=== PATIENT | male | born 1980 | race Caucasian/White ===

== ENCOUNTER 2018-08-26 12:06 | Emergency (ER) | payer SELFPAY ==
[~2018-08-26] VITALS: Ht 162.6 cm; Wt 84.4 kg
--- OUTSIDE RECORDS SUMMARY | 2018-08-26 12:15 | XMS REPORT ---
Author Author [facility] Address Unknown Phone Unavailable Care Team Providers Care Glass Bender Name Role Phone Unavailable Unavailable Payers Payer Name Policy Type Policy Number Effective Date Expiration Date Problems This patient has no known problems. Allergies, Adverse Reactions, Alerts Allergy Name Allergy Type Status Severity Reaction(s) Onset Date Inactive Date Treating Clinician Comments Penicillins DA Active [place] 2018-07-19 00:00:00 No Known Allergies DA Active U 2016-09-15 00:00:00 Medications This patient has no known medications. Encounters Start Date/Time End Date/Time Encounter Type Admission Type Attending Clinicians Care Facility Care Department Encounter ID 2017-12-25 09:35:34 Inpatient [facility] [id number] 2017-12-25 00:00:00 Inpatient [facility] [id number] 2017-12-25 00:00:00 Inpatient [facility] [id number] 2017-12-24 10:52:46 Inpatient [facility] [id number] 2017-12-24 00:00:00 Inpatient [facility] [id number] 2017-12-24 00:00:00 Inpatient [facility] [id number] 2017-12-21 07:52:39 Inpatient [facility] [id number] 2018-09-23 00:00:00 2018-09-23 00:00:00 Outpatient [facility] [id number] 2018-08-20 00:00:00 2018-08-20 00:00:00 Outpatient [facility] [id number] 2018-08-19 00:00:00 2018-08-19 00:00:00 Outpatient [facility] [id number] 2018-08-11 07:28:20 2018-08-11 07:28:20 Emergency [facility] [id number] 2018-08-11 06:38:42 2018-08-11 06:38:42 Emergency [facility] [id number] 2018-07-30 14:18:54 2018-07-30 14:18:54 Outpatient [facility] [id number] 2018-07-30 13:23:29 2018-07-30 13:23:29 Outpatient [facility] [id number] 2018-07-22 11:52:04 2018-07-22 11:52:04 Outpatient [facility] [id number] 2018-07-22 11:09:03 2018-07-22 11:09:03 Outpatient [facility] [id number] 2018-06-19 00:00:00 2018-06-19 00:00:00 Outpatient [facility] [id number] 2018-06-18 00:00:00 2018-06-18 00:00:00 Outpatient [facility] [id number] 2018-05-21 00:00:00 2018-05-21 00:00:00 Outpatient [facility] [id number] 2018-05-09 00:00:00 2018-05-09 00:00:00 Outpatient [facility] [id number] 2018-05-02 00:00:00 2018-05-02 00:00:00 Outpatient [facility] [id number] 2018-05-01 00:00:00 2018-05-01 00:00:00 Outpatient [facility] [id number] 2018-05-01 00:00:00 2018-05-01 00:00:00 Outpatient [facility] [id number] 2018-04-29 00:00:00 2018-04-29 00:00:00 Outpatient [facility] [id number] 2018-04-23 00:00:00 2018-04-23 00:00:00 Outpatient [facility] [id number] 2018-04-17 00:00:00 2018-04-17 00:00:00 Outpatient [facility] [id number] 2018-04-16 00:00:00 2018-04-16 00:00:00 Outpatient [facility] [id number] 2018-04-15 00:00:00 2018-04-15 00:00:00 Outpatient [facility] [id number] 2018-04-02 00:00:00 2018-04-02 00:00:00 Outpatient [facility] [id number] 2018-04-01 00:00:00 2018-04-01 00:00:00 Outpatient [facility] [id number] 2018-04-01 00:00:00 2018-04-01 00:00:00 Outpatient [facility] [id number] 2018-03-28 09:20:19 2018-03-28 09:20:19 Outpatient [facility] [id number] 2018-03-28 08:42:04 2018-03-28 08:42:04 Outpatient [facility] [id number] 2018-03-28 00:00:00 2018-03-28 00:00:00 Outpatient [facility] [id number] 2018-03-27 00:00:00 2018-03-27 00:00:00 Outpatient [facility] [id number] 2018-03-27 00:00:00 2018-03-27 00:00:00 Outpatient [facility] [id number] 2018-03-24 22:16:28 2018-03-24 22:16:28 Emergency [facility] [id number] 2018-03-15 00:00:00 2018-03-15 00:00:00 Outpatient [facility] [id number] 2018-03-14 00:00:00 2018-03-14 00:00:00 Outpatient [facility] [id number] 2018-03-08 00:00:00 2018-03-08 00:00:00 Outpatient [facility] [id number] 2018-03-07 00:00:00 2018-03-07 00:00:00 Outpatient [facility] [id number] 2018-03-06 00:00:00 2018-03-06 00:00:00 Outpatient [facility] [id number] 2018-03-06 00:00:00 2018-03-06 00:00:00 Outpatient [facility] [id number] 2018-03-06 00:00:00 2018-03-06 00:00:00 Outpatient [facility] [id number] 2018-03-05 00:00:00 2018-03-05 00:00:00 Outpatient [facility] [id number] 2018-02-27 00:00:00 2018-02-27 00:00:00 Outpatient [facility] [id number] 2018-02-13 00:00:00 2018-02-13 00:00:00 Outpatient [facility] [id number] 2018-02-12 08:37:16 2018-02-12 08:37:16 Outpatient [facility] [id number] 2018-02-11 11:24:26 2018-02-11 11:24:26 Outpatient [facility] [id number] 2018-02-11 10:03:24 2018-02-11 10:03:24 Outpatient [facility] [id number] 2018-02-11 09:57:23 2018-02-11 09:57:23 Outpatient [facility] [id number] 2018-02-06 18:28:45 2018-02-06 18:28:45 Emergency [facility] [id number] 2018-02-06 13:53:33 2018-02-06 13:53:33 Outpatient [facility] [id number] 2018-02-06 13:11:56 2018-02-06 13:11:56 Outpatient [facility] [id number] 2018-01-24 00:00:00 2018-01-24 00:00:00 Outpatient [facility] [id number] 2018-01-21 00:00:00 2018-01-21 00:00:00 Outpatient [facility] [id number] 2018-01-21 00:00:00 2018-01-21 00:00:00 Outpatient [facility] [id number] 2018-01-03 00:00:00 2018-01-03 00:00:00 Outpatient [facility] [id number] 2018-01-03 00:00:00 2018-01-03 00:00:00 Outpatient [facility] [id number] 2018-01-01 00:00:00 2018-01-01 00:00:00 Outpatient [facility] [id number] 2017-12-21 05:54:19 2017-12-21 05:54:19 Emergency [facility] [id number] 2017-12-21 02:24:43 2017-12-21 02:24:43 Emergency [facility] [id number] 2017-12-21 00:47:45 2017-12-21 00:47:45 Inpatient [facility] [id number] Results Test Description Test Time Test Comments Text Results Atomic Results Result Comments CULTURE, URINE 2018-07-07 10:09:00 Report Text (test code=Report Text) [facility] 2018-07-06 1334 Report Text7 (test code=Report Text7) NO GROWTH WITHIN 24 HOURS Report Text8 (test code=Report Text8) PRELIMINARY REPORT Report Text9 (test code=Report Text9) Report Text10 (test code=Report Text10) [facility] 2018-07-07 1009 Report Text11 (test code=Report Text11) NO GROWTH WITHIN 48 HOURS Report Text12 (test code=Report Text12) FINAL REPORT CT ABDOMEN/PELVIS [id number] 08:11:[address] [id number] IMAGING REPORTPatient Name: BREA AGUILERA LDate of Service: [id number]: 37 Sex: M Order #: [id number] Room: [facility]: 1980 X-Ray Number: [id number] Record Number: [id number] Hospital Number: [id number] Physician: ROCK URENAOrdering Physician: CAITY DURON -CT ABDOMEN AND PELVIS WITHOUT CONTRAST 0752 hours July 05, 2018:CLINICAL HISTORY: Lateral flank pain for 2 daysTECHNIQUE: Examination is performed with 4 mm axial sections with coronaland sagittal reconstructions. This CT exam was performed using one or moreof the following dose reduction techniques: Automated exposure control,adjustment of the MA and or KV according to patient size or use ofiterative reconstruction technique.FINDINGS: The unopacified urinary tract is normal.Retrocecal appendix is normal.The unenhanced liver, spleen, pancreas and adrenals and gallbladder arealso unremarkable.There is focal density in the fundus of the stomach possib ly ingestedmedication.The gas pattern is unremarkable.Impression: Normal examina tionElectronically Signed By: Florentino Laughlin M.D., 07/05/2018 8:09 AMLegalindsay y authenticated by ROSLYN Krueger 2018-07-05 08:09:03WHOLE BLOOD GLUCOSE 2018-07-05 07:52:00* Test Item Value Reference Range Comments WHOLE BLOOD GLUCOSE (test code=POC GLU) 147 mg/dL 70-99 Fasting glucose normal <100 MG/DL- [employer] recommendation [id number] 07:08:00* Test Item Value Reference Range Comments GLUCOSE (test code=URGLU) NEGATIVE MG/DL NEG-100 BILIRUBN (test code=URBILI) NEGATIVE NEGATIVE KETONE (test code=URKET) NEGATIVE MG/DL NEGATIVE BLOOD (test code=URBLD) SMALL UR PH (test code=URPH) 5.5 5.0-7.5 PROTEIN (test code=URPRO) 100 MG/DL NEGATIVE NITRITES (test code=URNIT) NEGATIVE NEGATIVE UROBILINGEN (test code=URURO) 0.2 EU/DL 0.2-1.0 LEUKOCYT (test code=URLEU) NEGATIVE NEGATIVE UA COLOR (test code=UA COLOR) YELLOW YELLOW CLARITY (test code=CLARITY) CLEAR CLEAR SP GRAV (test code=URSPGRAV) 1.014 1.000-1.025 UAMICRO (test code=UAMICRO) YES WBC (test code=URWBC) 1 /HPF 0-5 RBC (test code=URRBC) 3 /HPF 0-2 CASTS (test code=CAST) 1 /LPF 0-3 UR EPI (test code=EPI) 10 /LPF BACTERIA (test code=BACTERIA) NEGATIVE NONE
--- OUTSIDE RECORDS SUMMARY | 2018-08-26 12:15 | XMS REPORT | Clinical Summary ---
Author Author [facility] Address Unknown Phone Unavailable Care Team Providers Care Impregnator Helper Name Role Phone Asked, No Pcp PCP Unavailable Allergies Comments Active Allergy Reactions Severity Noted Date Childhood allergy Penicillin 11/28/2017 Medications End Date Status Medication Sig Dispensed Refills Start Date Active FLUoxetine (PROzac) 10 MG Take 10 mg by 0 capsule mouth every morning. Active metoprolol tartrate Take 50 mg by 0 (LOPRESSOR) 50 mg tablet mouth 2 (two) times a day. Active insulin GLARGINE (LANTUS) Inject 35 0 100 unit/mL injection Units under (vial) the skin nightly. Active insulin lispro (HumaLOG) Inject under 0 100 unit/mL injection the skin 3 (three) times a day before meals. Active gabapentin (NEURONTIN) Take 300 mg 0 300 mg capsule by mouth 3 (three) times a day. Active glimepiride (AMARYL) 4 MG Take 4 mg by 0 tablet mouth daily before breakfast. Active lisinopril Take 2.5 mg 0 (PRINIVIL,ZESTRIL) 2.5 mg by mouth tablet daily. 01/29/2018 Discontinued glimepiride (AMARYL) 2 MG Take 2 mg by 0 tablet mouth daily before breakfast. 01/29/2018 Discontinued metoprolol tartrate Take 25 mg by 0 (LOPRESSOR) 25 mg tablet mouth 2 (two) times a day. 01/25/2018 Discontinued chlordiazePOXIDE Take 25 mg by 0 (LIBRIUM) 25 MG capsule mouth 3 8 (three) times a day as needed for anxiety or withdrawal. 01/29/2018 Discontinued thiamine 100 MG tablet Take 100 mg 0 by mouth every morning. 01/29/2018 Discontinued folic acid (FOLVITE) 1 MG Take 1 mg by 0 tablet mouth every morning. 03/01/2018 glimepiride (AMARYL) 4 MG Take 1 tablet 30 tablet 0 tablet (4 mg total) 8 by mouth daily before breakfast for 30 days. 02/28/2018 atorvastatin (LIPITOR) 40 Take 1 tablet 30 tablet 0 MG tablet (40 mg total) 8 by mouth nightly for 30 days. 02/28/2018 metoprolol tartrate Take 1 tablet 60 tablet 0 (LOPRESSOR) 50 mg tablet (50 mg total) 8 by mouth 2 (two) times a day for 30 days. 02/28/2018 folic acid (FOLVITE) 1 MG Take 1 tablet 30 tablet 0 tablet (1 mg total) 8 by mouth every morning for 30 days. 02/28/2018 insulin NPH (HumuLIN-N) Inject 14 10 mL 12 100 unit/mL injection Units under 8 the skin 2 (two) times a day for 30 days. 03/01/2018 pantoprazole (PROTONIX) Take 1 tablet 30 tablet 0 40 MG EC tablet (40 mg total) 8 by mouth daily for 30 days. 02/28/2018 thiamine 100 MG tablet Take 1 tablet 30 tablet 0 (100 mg 8 total) by mouth every morning for 30 days. 05/09/2018 pantoprazole (PROTONIX) Take 1 tablet 30 tablet 0 40 MG EC tablet (40 mg total) 8 by mouth daily for 30 days. 05/09/2018 sucralfate (CARAFATE) 1 Take 1 tablet 120 tablet 0 gram tablet (1 g total) 8 by mouth 4 (four) times a day for 30 days. 04/14/2018 ALPRAZolam (XANAX) 0.5 MG Take 1 tablet 10 tablet 0 tablet (0.5 mg 8 total) by mouth 2 (two) times a day as needed for anxiety for up to 5 days. 04/13/2018 chlordiazePOXIDE Take 1 12 capsule 0 (LIBRIUM) 5 MG capsule capsule (5 mg 8 total) by mouth 3 (three) times a day as needed for anxiety for up to 4 days. 05/09/2018 sucralfate (CARAFATE) 100 Take 10 mL (1 1200 mL 0 mg/mL suspension g total) by 8 mouth 4 (four) times a day before meals and nightly for 30 days. 05/10/2018 folic acid (FOLVITE) 1 MG Take 1 tablet 30 tablet 0 tablet (1 mg total) 8 by mouth daily for 30 days. 05/09/2018 pantoprazole (PROTONIX) Take 1 tablet 60 tablet 0 40 MG EC tablet (40 mg total) 8 by mouth 2 (two) times a day for 30 days. 05/09/2018 thiamine 100 MG tablet Take 1 tablet 30 tablet 0 (100 mg 8 total) by mouth daily for 30 days. Active Problems Problem Noted Date Gastritis 04/08/2018 Esophagitis 04/08/2018 Chronic pancreatitis due to acute alcohol intoxication 04/06/2018 Epigastric abdominal pain 04/06/2018 Overview: Added automatically from request for surgery [id number] Type 2 diabetes mellitus with complication 01/29/2018 Thrombocytopenia 01/29/2018 B12 deficiency 01/29/2018 Anxiety 01/29/2018 ETOH abuse 12/21/2017 Hypertension Resolved Problems Problem Noted Date Resolved Date Alcohol-induced acute pancreatitis without infection or necrosis 01/25/2018 01/29/2018 Encounters Care Team Description Date Type Specialty Louisa Ramirez MD ESOPHAGOGASTRODUODENOSCOPY (EGD) with biopsy 04/08/2018 [place] [facility] [place] 04/08/2018 Anesthesia Gastroenterology [facility], MD Chivo Garcia, MD Vira Nazario, Diana Davenport MD Epigastric abdominal pain (Primary Dx); Chronic pancreatitis due to acute alcohol intoxication; Intractable vomiting with nausea, unspecified vomiting type; Type 2 diabetes mellitus with complication, with long-term current use of insulin 04/06/2018 [facility] General Internal Medicine - Encounter 04/09/2018 Pamella Cohen, MODESTO 01/31/2018 Telephone Diabetes Services Lyndsey Dorantes MD Joglekar, Swati, MD Bavare, MD Cyrus Nazario David, DO Alcohol-induced acute pancreatitis without infection or necrosis (Primary Dx); Acute alcoholic intoxication with complication 01/25/2018 [facility] General Internal Medicine - Encounter 01/29/2018 New Vazquez Jr., MD Alcohol withdrawal syndrome without complication (Primary Dx) 11/28/2017 Emergency Emergency Medicine after 08/25/2017 Social History Date Tobacco Use Types Packs/Day Years Used Never Smoker Smokeless Tobacco: Never Used Alcohol Use Drinks/Week oz/Week Comments Yes 84 Cans of 50.4 beer Sex Assigned at Date Recorded Not on file Industry Job Start Date Occupation Not on file Not on file Not on file Travel End Travel History Travel Start No recent travel history available. Last Filed Vital Signs Time Taken Vital Sign Reading 04/09/2018 11:58 AM CDT Blood Pressure 156/95 04/09/2018 11:58 AM CDT Pulse 70 04/09/2018 7:38 AM CDT Temperature 36.2 C (97.2 F) 04/09/2018 11:58 AM CDT Respiratory Rate 18 04/09/2018 11:58 AM CDT Oxygen Saturation 97% - Inhaled Oxygen - Concentration 04/06/2018 10:45 AM CDT Weight 87.7 kg (193 lb 4 oz) 04/06/2018 10:45 AM CDT Height 165.1 cm (5' 5") 04/06/2018 10:45 AM CDT Body Mass Index 32.16 Plan of Treatment Health Maintenance Due Date Last Done Comments DIABETIC RETINAL EYE EXAM 1978 MMR VACCINES (1 of - 1979 Standard series) DIABETIC FOOT EXAM 1988 URINE MICROALBUMIN 1988 VARICELLA VACCINES (1 of 1991 2 - 2-dose adolescent series) HEPATITIS B VACCINES (1 1997 of 3 - Risk 3-dose series) INFLUENZA VACCINE 05/08/2018 IPV VACCINES Aged Out No longer eligible based on patient's age to complete this topic MENINGOCOCCAL VACCINE Aged Out No longer eligible based on patient's age to complete this topic Procedures Comments Procedure Name Priority Date/Time Associated Diagnosis POC GLUCOSE Routine 04/09/2018 11:56 AM CDT POC GLUCOSE Routine 04/09/2018 9:23 AM CDT POC GLUCOSE Routine 04/09/2018 9:00 AM CDT POC GLUCOSE Routine 04/09/2018 6:17 AM CDT POC GLUCOSE Routine 04/08/2018 8:28 PM CDT POC GLUCOSE Routine 04/08/2018 4:14 PM CDT SURGICAL PATHOLOGY Routine 04/08/2018 REQUEST 12:57 PM CDT POC GLUCOSE Routine 04/08/2018 12:24 PM CDT ESOPHAGOGASTRODUODENOSCOP 04/08/2018 Epigastric abdominal pain Y (EGD) 11:15 AM CDT POC GLUCOSE Routine 04/08/2018 6:41 AM CDT HEMOGLOBIN A1C Routine 04/08/2018 6:30 AM CDT POC GLUCOSE Routine 04/07/2018 8:14 PM CDT POC GLUCOSE Routine 04/07/2018 4:24 PM CDT POC GLUCOSE Routine 04/07/2018 11:01 AM CDT POC GLUCOSE Routine 04/07/2018 6:19 AM CDT ZZESTIMATED GFR Routine 04/07/2018 6:15 AM CDT HC COMPLETE BLD COUNT Routine 04/07/2018 W/AUTO DIFF 6:15 AM CDT HEMOGLOBIN A1C Routine 04/07/2018 6:15 AM CDT LIPID PANEL Routine 04/07/2018 6:15 AM CDT BASIC METABOLIC PANEL Routine 04/07/2018 6:15 AM CDT POC GLUCOSE Routine 04/06/2018 8:00 PM CDT POC GLUCOSE Routine 04/06/2018 4:20 PM CDT POC GLUCOSE Routine 04/06/2018 10:09 AM CDT POC GLUCOSE Routine 04/06/2018 9:45 AM CDT XR CHEST 2 VW STAT 04/06/2018 7:[address] ABDOMEN PELVIS W STAT 04/06/2018 CONTRAST 7:05 AM CDT ECG 12-LEAD STAT 04/06/2018 6:12 AM CDT ZZESTIMATED GFR STAT 04/06/2018 5:04 AM CDT ALCOHOL LEVEL, BLOOD STAT 04/06/2018 5:04 AM CDT LIPASE LEVEL STAT 04/06/2018 5:04 AM CDT COMPREHENSIVE METABOLIC STAT 04/06/2018 PANEL 5:04 AM CDT HC COMPLETE BLD COUNT STAT 04/06/2018 W/AUTO DIFF 5:04 AM CDT URINE DRUGS OF ABUSE Routine 04/06/2018 SCREEN 5:02 AM CDT URINALYSIS SCREEN AND STAT 04/06/2018 MICROSCOPY, WITH REFLEX 5:02 AM CDT TO CULTURE POC GLUCOSE Routine 01/29/2018 11:41 AM CDT POC GLUCOSE Routine 01/29/2018 6:22 AM CDT ZZESTIMATED GFR Routine 01/29/2018 5:56 AM CDT MAGNESIUM LEVEL Routine 01/29/2018 5:56 AM CDT HC COMPLETE BLD COUNT Routine 01/29/2018 W/AUTO DIFF 5:56 AM CDT BASIC METABOLIC PANEL Routine 01/29/2018 5:56 AM CDT POC GLUCOSE Routine 01/28/2018 8:56 PM CDT POC GLUCOSE Routine 01/28/2018 4:04 PM CDT POC GLUCOSE Routine 01/28/2018 12:00 PM CDT POC GLUCOSE Routine 01/28/2018 6:48 AM CDT LIPASE LEVEL Routine 01/28/2018 5:34 AM CDT POC GLUCOSE Routine 01/27/2018 9:23 PM CDT POC GLUCOSE Routine 01/27/2018 4:15 PM CDT POC GLUCOSE Routine 01/27/2018 11:22 AM CDT ZZESTIMATED GFR Routine 01/27/2018 7:04 AM CDT LIPASE LEVEL Routine 01/27/2018 7:04 AM CDT HC COMPLETE BLD COUNT Routine 01/27/2018 W/AUTO DIFF 7:04 AM CDT BASIC METABOLIC PANEL Routine 01/27/2018 7:04 AM CDT POC GLUCOSE Routine 01/27/2018 6:31 AM CDT POC GLUCOSE Routine 01/26/2018 8:45 PM CDT POC GLUCOSE Routine 01/26/2018 4:12 PM CDT POC GLUCOSE Routine 01/26/2018 11:14 AM CDT POC GLUCOSE Routine 01/26/2018 6:42 AM CDT ZZESTIMATED GFR Routine 01/26/2018 4:55 AM CDT LIPASE LEVEL Routine 01/26/2018 4:55 AM CDT LIPID PANEL Routine 01/26/2018 4:55 AM CDT HEMOGLOBIN A1C Routine 01/26/2018 4:55 AM CDT COMPREHENSIVE METABOLIC Routine 01/26/2018 PANEL 4:55 AM CDT HC COMPLETE BLD COUNT Routine 01/26/2018 W/AUTO DIFF 4:55 AM CDT POC GLUCOSE Routine 01/25/2018 9:01 PM CDT POC GLUCOSE Routine 01/25/2018 7:46 PM CDT POC GLUCOSE Routine 01/25/2018 3:40 PM CDT ECHOCARDIOGRAM 2D Routine 01/25/2018 COMPLETE W MMODE SPECTRAL 3:06 PM CDT COLOR DOPPLER ([id number]) CT CHEST WO CONTRAST STAT 01/25/2018 12:54 PM CDT POC GLUCOSE Routine 01/25/2018 12:[address] ABDOMEN PELVIS WO STAT 01/25/2018 CONTRAST 11:[address] HEAD WO CONTRAST STAT 01/25/2018 11:29 AM CDT URINE DRUGS OF ABUSE STAT 01/25/2018 SCREEN 6:22 AM CDT URINALYSIS SCREEN AND STAT 01/25/2018 MICROSCOPY, WITH REFLEX 6:22 AM CDT TO CULTURE XR CHEST 1 VW PORTABLE STAT 01/25/2018 5:15 AM CDT ECG 12-LEAD STAT 01/25/2018 4:52 AM CDT ZZESTIMATED GFR STAT 01/25/2018 4:48 AM CDT LIPASE LEVEL STAT 01/25/2018 4:48 AM CDT ALCOHOL LEVEL, BLOOD STAT 01/25/2018 4:48 AM CDT B NATRIURETIC PEPTIDE STAT 01/25/2018 4:48 AM CDT TROPONIN STAT 01/25/2018 4:48 AM CDT COMPREHENSIVE METABOLIC STAT 01/25/2018 PANEL 4:48 AM CDT PROTHROMBIN TIME WITH INR STAT 01/25/2018 4:48 AM CDT PARTIAL THROMBOPLASTIN STAT 01/25/2018 TIME (PTT) 4:48 AM CDT HC COMPLETE BLD COUNT STAT 01/25/2018 W/AUTO DIFF 4:48 AM CDT ECG ED PRELIMINARY Routine 01/25/2018 INTERPRETATION 4:46 AM CDT TROPONIN Timed 11/28/2017 2:[address] ABDOMEN PELVIS W STAT 11/28/2017 CONTRAST 1:00 PM [facility] ECG ED PRELIMINARY Routine 11/28/2017 INTERPRETATION 11:46 AM [facility] URINALYSIS SCREEN AND STAT 11/28/2017 MICROSCOPY, WITH REFLEX 11:05 AM [facility] TO CULTURE LACTIC ACID LEVEL STAT 11/28/2017 10:29 AM [facility] ALCOHOL LEVEL, BLOOD STAT 11/28/2017 10:29 AM [facility] PHOSPHORUS LEVEL STAT 11/28/2017 10:29 AM [facility] MAGNESIUM LEVEL STAT 11/28/2017 10:29 AM [facility] TROPONIN STAT 11/28/2017 10:29 AM [facility] ZZESTIMATED GFR STAT 11/28/2017 10:29 AM [facility] HC COMPLETE BLD COUNT STAT 11/28/2017 W/AUTO DIFF 10:29 AM [facility] LIPASE LEVEL STAT 11/28/2017 10:29 AM [facility] COMPREHENSIVE METABOLIC STAT 11/28/2017 PANEL 10:29 AM [facility] ECG 12-LEAD STAT 11/28/2017 10:24 AM [facility] after 08/25/2017 Results * POC glucose (04/09/2018 11:56 AM CDT) Only the most recent of 34 results within the time period is included. POC glucose 201 (H) 65 - 100 mg/dL [facility] DEPARTMENT OF Comment: PATHOLOGY AND Meter ID: [id number] GENOMIC MEDICINE Tennis Ball Coverer Hand: Mahsa Espinoza Performing Organization Address [facility]/Zipcode Phone Number [facility] [address] [place], [place] [id number] PATHOLOGY AND GENOMIC MEDICINE * Surgical pathology request (04/08/2018 12:57 PM CDT) [facility] DEPARTMENT OF PATHOLOGY AND GENOMIC MEDICINE Surgical pathology report See link below for PDF Lab [facility] DEPARTMENT OF Report PATHOLOGY AND GENOMIC MEDICINE Result status This is Final Report to [facility] DEPARTMENT OF [id number] PATHOLOGY AND GENOMIC MEDICINE Performing Organization Address City/[facility] Phone Number [place] [phone] PATHOLOGY AND GENOMIC MEDICINE * Hemoglobin A1c (04/08/2018 6:30 AM CDT) Only the most recent of 3 results within the time period is included. Hemoglobin A1C 7.9 (H) 4.0 - 6.0 % [facility] DEPARTMENT OF Comment: PATHOLOGY AND GENOMIC MEDICINE Less than 6% - Goal of therapy for Type II Diabetes Less than 7%-Goal of therapy for Type I Diabetes Less than 8%-Accepta ble control for Type I or Type II Diabetes Greater than 8%-Unacceptabl e control; action indicated. (ADA94) Specimen Blood Performing Organization Address [facility] Phone Number [place] [phone] PATHOLOGY AND GENOMIC MEDICINE * Estimated GFR (04/07/2018 6:15 AM CDT) Only the most recent of 7 results within the time period is included. GFR Non Af Amer >90 mL/min/1.73 m2 [facility] DEPARTMENT OF PATHOLOGY AND GENOMIC MEDICINE GFR Af Amer >90 mL/min/1.73 m2 [facility] DEPARTMENT OF Comment: PATHOLOGY AND Chronic kidney disease: <60 GENOMIC MEDICINE mL/min/1.73m2 Kidney failure: <15 mL/min/1.73m2 The estimated GFR is calculated from the IDMS-traceable Modification of Diet in Renal Disease Equation. The accuracy of the calculation is poor when the creatinine is normal. Calculated values >90 mL/min/1.73m2 are not reported. This equation has not been validated in children (<18 years), women, the elderly (>70 years), or ethnic groups other than Caucasians and Americans. Specimen Plasma specimen Performing Organization Address City/State/Zipcode Phone Number [place] [phone] [place] [address] PATHOLOGY AND GENOMIC MEDICINE * CBC with platelet and differential (04/07/2018 6:15 AM CDT) Only the most recent of 7 results within the time period is included. WBC 5.2 4.2 - 11.0 k/uL [facility] PATHOLOGY AND GENOMIC MEDICINE RBC 4.06 4.04 - 5.86 m/uL [facility] PATHOLOGY AND GENOMIC MEDICINE HGB 12.8 (L) 13.0 - 17.3 g/dL [facility] PATHOLOGY AND GENOMIC MEDICINE HCT 37.8 34.0 - 45.0 % [facility] PATHOLOGY AND GENOMIC MEDICINE MCV 93.1 80.0 - 98.0 fL [facility] OF PATHOLOGY AND GENOMIC MEDICINE MCH 31.5 27.0 - 34.0 pg [facility] PATHOLOGY AND GENOMIC MEDICINE MCHC 33.9 31.5 - 36.5 g/dL [facility] OF PATHOLOGY AND GENOMIC MEDICINE RDW - SD 44.8 37.0 - 51.0 fL [facility] OF PATHOLOGY AND GENOMIC MEDICINE MPV 10.5 (H) 7.4 - 10.4 fL [facility] PATHOLOGY AND GENOMIC MEDICINE Platelet count 135 (L) 150 - 400 k/uL [facility] DEPARTMENT OF PATHOLOGY AND GENOMIC MEDICINE Nucleated RBC 0.00 /100 WBC [facility] DEPARTMENT OF PATHOLOGY AND GENOMIC MEDICINE Neutrophils 59.0 36.0 - 66.0 % [facility] DEPARTMENT OF PATHOLOGY AND GENOMIC MEDICINE Lymphocytes 25.7 24.0 - 44.0 % [facility] OF PATHOLOGY AND GENOMIC MEDICINE Monocytes 11.6 (H) 0.0 - 6.0 % [facility] OF PATHOLOGY AND GENOMIC MEDICINE Eosinophils 2.3 0.0 - 6.0 % [facility] PATHOLOGY AND GENOMIC MEDICINE Basophils 1.0 0.0 - 1.2 % [facility] PATHOLOGY AND GENOMIC MEDICINE Immature granulocytes 0.4 0.0 - 1.0 % [facility] DEPARTMENT OF PATHOLOGY AND GENOMIC MEDICINE Specimen Blood Performing Organization Address City/[facility] Phone Number [facility] [address] [place] [address] PATHOLOGY AND GENOMIC MEDICINE * Lipid panel (04/07/2018 6:15 AM CDT) Only the most recent of 2 results within the time period is included. Cholesterol 216 (H) 0 - 199 mg/dL [facility] DEPARTMENT OF PATHOLOGY AND GENOMIC MEDICINE Triglycerides 66 0 - 149 mg/dL [facility] DEPARTMENT OF PATHOLOGY AND GENOMIC MEDICINE HDL cholesterol 117 40 - 9,999 mg/dL [facility] DEPARTMENT OF PATHOLOGY AND GENOMIC MEDICINE LDL cholesterol 102 (H)Comment: Result 0 - 99 mg/dL [facility] obtained by direct LDL PATHOLOGY AND measurement GENOMIC MEDICINE Lipid panel See below [facility] DEPARTMENT OF interpretation Comment: PATHOLOGY AND Total Cholesterol GENOMIC MEDICINE (mg/dL) LDL Cholesterol (mg/dL) <200 Desirable <100 Optimal 200-239Borderline -[id number] or above optimal >=240High 130-159Borderline- high 160-189High >=190Very high HDL Cholesterol (mg/dL) Triglycerides (mg/dL) <40Low <150 Normal >=60 High 150-199Borderline- high 200-499High >=500Very high Risk Catergories that modify LDL goals. Risk Catergories LDL goal (mg/dL) CHD and CHD risk equivalent <100 (10-year risk >20%) Multiple (2+) risk factors <130 (10-year risk=<20%) 0-1 risk factors <160 (<10-year risk) Defining levels of lipids in metabolic syndrome Triglycerides >=150 mg/dL HDL Cholesterol Men <40 mg/dL Women <50 mg/dL Non-HDL cholesterol is a second target for therapy in persons with high triglycerides (>=200 mg/dL) Specimen Plasma specimen Performing Organization Address City/[facility]/Zipcode Phone Number [place] [phone] [place] [address] PATHOLOGY AND GENOMIC MEDICINE * Basic metabolic panel (04/07/2018 6:15 AM CDT) Only the most recent of 3 results within the time period is included. Sodium 139 135 - 150 mEq/L [facility] DEPARTMENT OF PATHOLOGY AND GENOMIC MEDICINE Potassium 3.7 3.5 - 5.0 mEq/L [facility] DEPARTMENT OF PATHOLOGY AND GENOMIC MEDICINE Chloride 102 98 - 112 mEq/L [facility] DEPARTMENT OF PATHOLOGY AND GENOMIC MEDICINE CO2 29 24 - 31 mmol/L [facility] DEPARTMENT OF PATHOLOGY AND GENOMIC MEDICINE Anion gap 8@ANIO 7 - 15 mEq/L [facility] DEPARTMENT OF PATHOLOGY AND GENOMIC MEDICINE BUN 9 7 - 18 mg/dL [facility] DEPARTMENT OF PATHOLOGY AND GENOMIC MEDICINE Creatinine 0.70 0.70 - 1.20 mg/dL [facility] DEPARTMENT OF PATHOLOGY AND GENOMIC MEDICINE Glucose 71 65 - 100 mg/dL [facility] DEPARTMENT OF PATHOLOGY AND GENOMIC MEDICINE Calcium 8.5 8.3 - 10.2 mg/dL [facility] DEPARTMENT OF PATHOLOGY AND GENOMIC MEDICINE Specimen Plasma specimen Performing Organization Address City/State/Zipcode Phone Number [facility] DEPARTMENT [address] [place] [address] PATHOLOGY AND GENOMIC MEDICINE * XR Chest 2 Vw (04/06/2018 7:15 AM CDT) Narrative Performed At EXAMINATION:XR CHEST 2 VW [facility] CLINICAL HISTORY:Admission COMPARISON:January 25, 2018 chest IMPRESSION: No acute abnormality chest The lungs are hypoexpanded but clear. The heart is not enlarged. The bony structures are within normal limits. Two-view chest [id number] Procedure Note Hm Interface, Radiology Results Incoming - 04/06/2018 7:21 AM CDT EXAMINATION: XR CHEST 2 VW CLINICAL HISTORY: Admission COMPARISON: January 25, 2018 chest IMPRESSION: No acute abnormality chest The lungs are hypoexpanded but clear. The heart is not enlarged. The bony structures are within normal limits. Two-view chest [id number] Performing Organization Address [facility] Phone Number [facility] [address] [place] [address] * CT Abdomen Pelvis W Contrast (04/06/2018 7:05 AM CDT) Only the most recent of 2 results within the time period is included. Narrative Performed At EXAMINATION:CT ABDOMEN PELVIS W CONTRAST [facility] CLINICAL HISTORY: 37 yearsMale Nauseavomiting TECHNIQUE: Multiple axial images of the abdomen and pelvis were obtained following intravenous administration of iodinated contrast. Sagittal and coronal computerized reformatted images were also obtained. CT imaging was performed with iterative reconstruction techniques and/or automated exposure control to reduce radiation dose. COMPARISON:01/25/2018 IMPRESSION: Abdomen: 1. The liver is mildly decreased in attenuation. The spleen, pancreas, gallbladder and biliary tree, adrenal glands, and kidneys are normal. The lung bases are free of acute disease. 2.There is diffuse thickening of the visualized lower esophagus. Lymph nodes are present in the gastrohepatic and supraceliac region. 3.The abdominal aorta is normal in caliber. There our tiny nonspecific retroperitoneal lymph nodes. There is no evidence of retroperitoneal mass or adenopathy. 4.The appendix is well-visualized and unremarkable. There is no evidence of intestinal obstruction or free intraperitoneal air. Pelvis: 1. The urinary bladder is slightly distended. There is no evidence of pelvic mass, fluid collection, or pelvic lymphadenopathy. 2.There are no suspicious bony abnormalities. Hypertrophic changes are present in the lower thoracic spine. SUMMARY: 1.Severe diffuse thickening lower esophagus with small paraesophageal and gastrohepatic lymph nodes. The findings are most likely related to esophagitis. Endoscopy is recommended for further evaluation. 2.Mild hepatic steatosis. [id number] Procedure Note Interface, Radiology Results Incoming - 04/06/2018 7:23 AM CDT EXAMINATION: CT ABDOMEN PELVIS W CONTRAST CLINICAL HISTORY: 37 yearsMale Nausea vomiting TECHNIQUE: Multiple axial images of the abdomen and pelvis were obtained following intravenous administration of iodinated contrast. Sagittal and coronal computerized reformatted images were also obtained. CT imaging was performed with iterative reconstruction techniques and/or automated exposure control to reduce radiation dose. COMPARISON: 01/25/2018 IMPRESSION: Abdomen: 1. The liver is mildly decreased in attenuation. The spleen, pancreas, gallbladder and biliary tree, adrenal glands, and kidneys are normal. The lung bases are free of acute disease. 2. There is diffuse thickening of the visualized lower esophagus. Lymph nodes are present in the gastrohepatic and supraceliac region. 3. The abdominal aorta is normal in caliber. There our tiny nonspecific retroperitoneal lymph nodes. There is no evidence of retroperitoneal mass or adenopathy. 4. The appendix is well-visualized and unremarkable. There is no evidence of intestinal obstruction or free intraperitoneal air. Pelvis: 1. The urinary bladder is slightly distended. There is no evidence of pelvic mass, fluid collection, or pelvic lymphadenopathy. 2. There are no suspicious bony abnormalities. Hypertrophic changes are present in the lower thoracic spine. SUMMARY: 1. Severe diffuse thickening lower esophagus with small paraesophageal and gastrohepatic lymph nodes. The findings are most likely related to esophagitis. Endoscopy is recommended for further evaluation. 2. Mild hepatic steatosis. [facility]-[id number] Performing Organization Address City/[facility]/Zipcode Phone Number [facility] [address] [place] [address] * ECG 12 lead (04/06/2018 6:12 AM CDT) Only the most recent of 3 results within the time period is included. Ventricular rate 84 [facility] MUSE Atrial rate 84 [facility] MUSE OK interval 174 [facility] QRSD interval 92 [facility] M[facility] QT interval 380 [facility] M[facility] QTC interval 449 [facility] P axis 1 49 [facility] MUSE QRS axis 1 48 [facility] M[facility] T wave axis 58 [facility] MUSE EKG impression Normal sinus rhythm-Normal [facility] MUSE ECG-In automated comparison with ECG of 25-JAN-2018 04:52,-No significant change was found- Performing Organization Address City/[facility] Phone Number [facility] MUSE [address] [place] [address] * Lipase level (04/06/2018 5:04 AM CDT) Only the most recent of 6 results within the time period is included. Lipase 56 13 - 60 U/L [facility] DEPARTMENT OF PATHOLOGY AND GENOMIC MEDICINE Specimen Plasma specimen Performing Organization Address City/[facility] Phone Number [address] [place] [address] PATHOLOGY AND GENOMIC MEDICINE * Alcohol level, blood (04/06/2018 5:04 AM CDT) Only the most recent of 3 results within the time period is included. Alcohol 189.3 mg/dL [facility] DEPARTMENT OF Comment: PATHOLOGY AND Normal GENOMIC MEDICINE None Detected Legal Intoxication in [place] 80 mg/dL (0.08%) Toxic Concentration 200 mg/dL (0.2%) Potentially Fatal 350-500 mg/dL (0.35%-0.5%) Alcohol percent 0.189 % [facility] DEPARTMENT OF PATHOLOGY AND GENOMIC MEDICINE Specimen Blood Performing Organization Address City/[facility] Phone Number [address] [place] [address] PATHOLOGY AND GENOMIC MEDICINE * Comprehensive metabolic panel (04/06/2018 5:04 AM CDT) Only the most recent of 4 results within the time period is included. Sodium 142 135 - 150 mEq/L [facility] DEPARTMENT OF PATHOLOGY AND GENOMIC MEDICINE Potassium 4.0 3.5 - 5.0 mEq/L [facility] DEPARTMENT OF PATHOLOGY AND GENOMIC MEDICINE Chloride 106 98 - 112 mEq/L [facility] DEPARTMENT OF PATHOLOGY AND GENOMIC MEDICINE CO2 25 24 - 31 mmol/L [facility] DEPARTMENT OF PATHOLOGY AND GENOMIC MEDICINE Anion gap 11@ANIO 7 - 15 mEq/L [facility] DEPARTMENT OF PATHOLOGY AND GENOMIC MEDICINE BUN 13 7 - 18 mg/dL [facility] DEPARTMENT OF PATHOLOGY AND GENOMIC MEDICINE Creatinine 0.60 (L) 0.70 - 1.20 mg/dL [facility] DEPARTMENT OF PATHOLOGY AND GENOMIC MEDICINE Glucose 95 65 - 100 mg/dL [facility] DEPARTMENT OF PATHOLOGY AND GENOMIC MEDICINE Calcium 8.3 8.3 - 10.2 mg/dL [facility] DEPARTMENT OF PATHOLOGY AND GENOMIC MEDICINE Protein 7.2 6.3 - 8.3 g/dL [facility] DEPARTMENT OF PATHOLOGY AND GENOMIC MEDICINE Albumin 3.1 (L) 3.5 - 5.0 g/dL [facility] DEPARTMENT OF PATHOLOGY AND GENOMIC MEDICINE A/G ratio 0.8 0.7 - 3.8 [facility] DEPARTMENT OF PATHOLOGY AND GENOMIC MEDICINE Alkaline phosphatase 52 0 - 129 U/L [facility] DEPARTMENT OF PATHOLOGY AND GENOMIC MEDICINE AST 39 10 - 50 U/L [facility] DEPARTMENT OF PATHOLOGY AND GENOMIC MEDICINE ALT 43 5 - 50 U/L [facility] DEPARTMENT OF PATHOLOGY AND GENOMIC MEDICINE Total bilirubin 0.3 0.2 - 1.2 mg/dL [facility] DEPARTMENT OF PATHOLOGY AND GENOMIC MEDICINE Specimen Plasma specimen Performing Organization Address City/State/Zipcode Phone Number [place] [phone] [place] [address] PATHOLOGY AND GENOMIC MEDICINE * Urinalysis screen and microscopy, with reflex to culture (04/06/2018 5:02 AM CDT) Only the most recent of 3 results within the time period is included. Specimen site Clean catch [facility] DEPARTMENT OF PATHOLOGY AND GENOMIC MEDICINE Color, UA Yellow [facility] DEPARTMENT OF PATHOLOGY AND GENOMIC MEDICINE Appearance, UA Clear [facility] DEPARTMENT OF PATHOLOGY AND GENOMIC MEDICINE Specific gravity, UA 1.011 1.001 - 1.035 [facility] DEPARTMENT OF PATHOLOGY AND GENOMIC MEDICINE pH, UA 5.0 5.0 - 8.5 [facility] DEPARTMENT OF PATHOLOGY AND GENOMIC MEDICINE Protein, UA 2+ (A) Negative [facility] DEPARTMENT OF PATHOLOGY AND GENOMIC MEDICINE Glucose, UA Negative Negative [facility] DEPARTMENT OF PATHOLOGY AND GENOMIC MEDICINE Ketones, UA Negative Negative [facility] DEPARTMENT OF PATHOLOGY AND GENOMIC MEDICINE Bilirubin, UA Negative Negative [facility] DEPARTMENT OF PATHOLOGY AND GENOMIC MEDICINE Blood, UA Moderate (A) Negative [facility] DEPARTMENT OF PATHOLOGY AND GENOMIC MEDICINE Nitrite, UA Negative Negative [facility] DEPARTMENT OF PATHOLOGY AND GENOMIC MEDICINE Urobilinogen, UA Negative <2.0 [facility] DEPARTMENT OF PATHOLOGY AND GENOMIC MEDICINE Leukocyte esterase, UA Negative Negative [facility] DEPARTMENT OF PATHOLOGY AND GENOMIC MEDICINE Epithelial cells, UA Few /HPF [facility] DEPARTMENT OF PATHOLOGY AND GENOMIC MEDICINE WBC, UA <1 0 - 1 /HPF [facility] DEPARTMENT OF PATHOLOGY AND GENOMIC MEDICINE RBC, UA 2 0 - 5 /HPF [facility] DEPARTMENT OF PATHOLOGY AND GENOMIC MEDICINE Bacteria, UA Trace None seen [facility] DEPARTMENT OF PATHOLOGY AND GENOMIC MEDICINE Yeast, UA None seen [facility] DEPARTMENT OF PATHOLOGY AND GENOMIC MEDICINE Yeast with pseudohyphae, None seen [facility] DEPARTMENT OF UA PATHOLOGY AND GENOMIC MEDICINE Granular casts, UA 5 (H) 0 - 1 /LPF [facility] DEPARTMENT OF PATHOLOGY AND GENOMIC MEDICINE Hyaline casts, UA 1 /LPF [facility] DEPARTMENT OF PATHOLOGY AND GENOMIC MEDICINE Specimen Urine Performing Organization Address City/State/[facility] Phone Number [facility] [address] [place] [address] PATHOLOGY AND GENOMIC MEDICINE * Urine drugs of abuse screen (04/06/2018 5:02 AM CDT) Only the most recent of 2 results within the time period is included. Amphetamine screen, urine Negative [facility] DEPARTMENT OF PATHOLOGY AND GENOMIC MEDICINE Barbiturate screen, urine Negative [facility] DEPARTMENT OF PATHOLOGY AND GENOMIC MEDICINE Benzodiazepine screen, Negative [facility] DEPARTMENT OF urine PATHOLOGY AND GENOMIC MEDICINE Cocaine screen, urine Negative [facility] DEPARTMENT OF PATHOLOGY AND GENOMIC MEDICINE Methadone screen, urine Negative [facility] DEPARTMENT OF PATHOLOGY AND GENOMIC MEDICINE Opiates screen, urine Negative [facility] DEPARTMENT OF PATHOLOGY AND GENOMIC MEDICINE Phencyclidine screen, Negative [facility] DEPARTMENT OF urine PATHOLOGY AND GENOMIC MEDICINE Cannabinoid screen, urine Negative [facility] DEPARTMENT OF Comment: PATHOLOGY AND Drug screen minimum GENOMIC MEDICINE concentration of detectability Amphetamines 1000 ng/mL Methamphetamines 1000 ng/mL Barbiturates 300 ng/mL Benzodiazepines 300 ng/mL Cocaine 300 ng/mL Methadone 300 ng/mL Opiates 300 ng/mL Phencyclidine 25 ng/mL Cannabinoids 50 ng/mL Tricyclics 1000 ng/mL Negative test results indicates presumptive evidence of lack of clinically significant drug concentration in this urine specimen. Positive test results are presumptive evidence of clinically significant drug concentration in this urine specimen. Testing performed for medical purposes only. Specimen Urine Performing Organization Address City/[facility]/Zipcode Phone Number [facility] [address] [place] [address] PATHOLOGY AND [email or web address] MEDICINE * Magnesium level (01/29/2018 5:56 AM CDT) Only the most recent of 2 results within the time period is included. Magnesium 2.10 1.60 - 2.40 mg/dL [facility] DEPARTMENT OF PATHOLOGY AND [email or web address] [facility] Specimen Plasma specimen Performing Organization Address City/[facility] Phone Number [address] [place] [address] PATHOLOGY AND [email or web address] MEDICINE * Echocardiogram complete w contrast and 3D if needed (01/25/2018 3:06 PM CDT) Ao Root Diameter 3.15 cm [facility] AoV Mean PG 6.80 mmHg [facility] AoV Peak PG 12.17 mmHg [facility] AoV Vmax 1.74 m/s [facility] AoV VTI 0.30 m [facility] IVS,d 1.21 (A) 0.6 - 1.2 cm [facility] Left Atrium Dimension 2.25 cm [facility] Anterior LV,d 4.63 cm [facility] LV,s 2.82 cm [facility] LVOT Diam,S 2.12 cm [facility] LVOT Vmax 1.12 m/s [facility] LVOT VTI 0.20 m [facility] LVPWD,d 1.04 cm [facility] PV Pk Grad 7.25 mmHg [facility] PV VMAX 1.35 m/s [facility] MV E A ratio 0.80 mmHg [facility] E wave decelartion time 311.07 msec [facility] MV Peak A Ranjith 0.98 m/s [facility] MV valve area p 1/2 5.11 cm2 [facility] method MV Peak E Ranjith 0.78 m/s [facility] MV stenosis pressure 1/2 43.07 ms [facility] time AV LVOT peak gradient 5.03 mmHg [facility] Ao Root Diameter 3.15 cm [facility] MV mean gradient 1.71 mmHg [facility] LV SYS VOL 30.07 ml [facility] LV JOSUE VOL 99.03 ml [facility] LV SV Teich 2D 68.96 ml [facility] LVOT CO 7.19 l/min [facility] LVOT HR for LVOT CO 99.15 bpm [facility] MR peak grad 2.82 mmHg [facility] MV Vmax 0.84 m [facility] MV VTI Tips 0.16 m [facility] AoV Vmn 1.25 [facility] IVS s 2D 1.45 [facility] LVOT Vmn 0.82 [facility] LVOT mean grad 2.95 mmHg [facility] LVPW s PLAX 1.30 cm [facility] MV Decel slope 2.52 m/s2 [facility] Velocity Ratio (V1/V2) 0.64 m/s [facility] EF 69.64 % [facility] E/A ratio 0.80 [facility] LVOT area 3.53 cm2 [facility] Narrative Performed At [facility] The left ventricle chamber size is normal. There is mild left ventricular Left Ventricular ejection fraction is 65 - 70%. No pericardial effusion The mitral valve appears thickened. Spectral Doppler shows impaired relaxation pattern of left ventricular diastolic filling. Performing Organization Address City/State/[facility] Hospital[facility] Phone Number [facility] [address] [place] [address] * CT Chest Wo Contrast (01/25/2018 12:54 PM CDT) Narrative Performed At Study:CT CHEST WO CONTRAST [facility] History: R O pulmonary Nodule COMPARISON: None. TECHNIQUE: Multiple axial CT images of the chest performed Without IV contrast.. Coronal and sagittal reconstructions were done. CT imaging was performed with iterative reconstruction technique and/or automated exposure control to reduce radiation dose. FINDINGS: LUNGS: There is no focal consolidation, pleural effusion, or pneumothorax. There are no suspicious pulmonary nodules or pulmonary mass. AIRWAYS: No central endobronchial or endotracheal lesions are seen. MEDIASTINUM: Dictation the ascending thoracic aorta measures up to 3.8 cm. No aneurysm. The main pulmonary artery is not dilated. Heart is normal limits in size. No significant pericardial effusion is present. No enlarged mediastinal or hilar lymph nodes present. A small hiatal hernia is present. BONES AND OVERLYING SOFT TISSUES: The visualized bones are without destructive lesions. No enlarged axillary lymph nodes present. VISUALIZED LOWER NECK AND UPPER ABDOMEN:Unremarkable. IMPRESSION: No significant pulmonary abnormality. [id number] Procedure Note Hm Interface, Radiology Results Incoming - 01/25/2018 1:09 PM CDT Study:CT CHEST WO CONTRAST History: R O pulmonary Nodule COMPARISON: None. TECHNIQUE: Multiple axial CT images of the chest performed Without IV contrast.. Coronal and sagittal reconstructions were done. CT imaging was performed with iterative reconstruction technique and/or automated exposure control to reduce radiation dose. FINDINGS: LUNGS: There is no focal consolidation, pleural effusion, or pneumothorax. There are no suspicious pulmonary nodules or pulmonary mass. AIRWAYS: No central endobronchial or endotracheal lesions are seen. MEDIASTINUM: Dictation the ascending thoracic aorta measures up to 3.8 cm. No aneurysm. The main pulmonary artery is not dilated. Heart is normal limits in size. No significant pericardial effusion is present. No enlarged mediastinal or hilar lymph nodes present. A small hiatal hernia is present. BONES AND OVERLYING SOFT TISSUES: The visualized bones are without destructive lesions. No enlarged axillary lymph nodes present. VISUALIZED LOWER NECK AND UPPER ABDOMEN:Unremarkable. IMPRESSION: No significant pulmonary abnormality. [facility]-[id number] Performing Organization Address City/State/Zipcode Phone Number [facility] [address] [place] [address] * CT Abdomen Pelvis Wo Contrast (01/25/2018 11:37 AM CDT) Narrative Performed At EXAMINATION:CT ABDOMEN PELVIS WO CONTRAST [facility] CLINICAL HISTORY:abd pain COMPARISON:None. TECHNIQUE: Multiple axial CT images of the Abdomen and pelvis were obtained Without IV contrast limiting evaluation . Sagittal and coronal reconstructions were done. Radiation dose reduction technique used for this study. CT imaging was performed with iterative reconstruction technique and/or automated exposure control to reduce radiation dose. FINDINGS: HEPATOBILIARY:The liver is heterogeneously hypodense from fatty change. No focal lesions within the limitations of the study. GALLBLADDER: Normal. SPLEEN:Not enlarged. Punctate granulomas are present. PANCREAS:Unremarkable within the limitations of a noncontrast exam. ADRENALS:No adrenal nodules. KIDNEYS:No stones or hydronephrosis. PERITONEUM/RETROPERITONEUM:No free air or fluid. No lymphadenopathy. ABDOMINAL AORTA/IVC: No signs of aneurysm. GI TRACT:Visualized portions of the bowel demonstrate no distention or wall thickening. The appendix is normal. PELVIC ORGANS/BLADDER:Unremarkable. BONES AND SOFT TISSUES:No acute abnormality. VISUALIZED LOWER CHEST: No acute abnormality. IMPRESSION: No acute abnormality. [facility]-[id number] Procedure Note Interface, Radiology Results Incoming - 01/25/2018 12:03 PM CDT EXAMINATION: CT ABDOMEN PELVIS WO CONTRAST CLINICAL HISTORY: abd pain COMPARISON: None. TECHNIQUE: Multiple axial CT images of the Abdomen and pelvis were obtained Without IV contrast limiting evaluation . Sagittal and coronal reconstructions were done. Radiation dose reduction technique used for this study. CT imaging was performed with iterative reconstruction technique and/or automated exposure control to reduce radiation dose. FINDINGS: HEPATOBILIARY: The liver is heterogeneously hypodense from fatty change. No focal lesions within the limitations of the study. GALLBLADDER: Normal. SPLEEN: Not enlarged. Punctate granulomas are present. PANCREAS: Unremarkable within the limitations of a noncontrast exam. ADRENALS: No adrenal nodules. KIDNEYS: No stones or hydronephrosis. PERITONEUM/RETROPERITONEUM: No free air or fluid. No lymphadenopathy. ABDOMINAL AORTA/IVC: No signs of aneurysm. GI TRACT: Visualized portions of the bowel demonstrate no distention or wall thickening. The appendix is normal. PELVIC ORGANS/BLADDER: Unremarkable. BONES AND SOFT TISSUES: No acute abnormality. VISUALIZED LOWER CHEST: No acute abnormality. IMPRESSION: No acute abnormality. [facility]-[id number] Performing Organization Address City/State/Zipcode Phone Number [facility] [address] [place] [address] * CT Head Wo Contrast (01/25/2018 11:29 AM CDT) Narrative Performed At EXAMINATION: CT HEAD WO CONTRAST [facility] CLINICAL HISTORY: CONFUSION DELERIUMALTERED LOCUNEXPLAINED COMPARISON:None TECHNIQUE: Noncontrast enhanced images of the brain were obtained from the skull base to the vertex. Both soft tissue and bone reconstruction algorithms were performed.CT imaging was performed with iterative reconstruction technique and/or automated exposure control to reduce radiation dose. FINDINGS: The brain parenchyma has no acute lesion. The mcintosh-white matter differentiation is preserved. No evidence of acute intra or extra-axial hemorrhage, mass, mass effect or acute territorial infarction. There is no acute hydrocephalus. Basal cisterns are patent. No evidence of intracranial trauma. No acute soft tissue hematoma or laceration. Paranasal sinuses shows no acute air-fluid levels. Mastoid air cells are clear.No skull fractures or aggressive bony lesions. IMPRESSION: No acute intracranial abnormality identified. [facility]-[id number] Procedure Note Interface, Radiology Results Incoming - 01/25/2018 11:40 AM CDT EXAMINATION: CT HEAD WO CONTRAST CLINICAL HISTORY: CONFUSION DELERIUM ALTERED LOC UNEXPLAINED COMPARISON: None TECHNIQUE: Noncontrast enhanced images of the brain were obtained from the skull base to the vertex. Both soft tissue and bone reconstruction algorithms were performed. CT imaging was performed with iterative reconstruction technique and/or automated exposure control to reduce radiation dose. FINDINGS: The brain parenchyma has no acute lesion. The mcintosh-white matter differentiation is preserved. No evidence of acute intra or extra-axial hemorrhage, mass, mass effect or acute territorial infarction. There is no acute hydrocephalus. Basal cisterns are patent. No evidence of intracranial trauma. No acute soft tissue hematoma or laceration. Paranasal sinuses shows no acute air-fluid levels. Mastoid air cells are clear. No skull fractures or aggressive bony lesions. IMPRESSION: No acute intracranial abnormality identified. [facility]-[id number] Performing Organization Address [facility] Phone Number [facility] [address] [place] [address] * XR Chest 1 Vw Portable (01/25/2018 5:15 AM CDT) Narrative Performed At EXAMINATION:XR CHEST 1 VW PORTABLE [facility] CLINICAL HISTORY:Chest Pain COMPARISON:None IMPRESSION: Nodular opacity projecting over the left lung base measures 1 cm. This may just represent nipple shadow, and repeat evaluation with nipple markers or CT chest could be performed to exclude an underlying nodule. No consolidations, effusions, or pneumothorax. Cardiomediastinal silhouette is within normal limits. No acute osseous abnormalities. [facility]-[id number] Procedure Note Interface, Radiology Results Incoming - 01/25/2018 5:43 AM CDT EXAMINATION: XR CHEST 1 VW PORTABLE CLINICAL HISTORY: Chest Pain COMPARISON: None IMPRESSION: Nodular opacity projecting over the left lung base measures 1 cm. This may just represent nipple shadow, and repeat evaluation with nipple markers or CT chest could be performed to exclude an underlying nodule. No consolidations, effusions, or pneumothorax. Cardiomediastinal silhouette is within normal limits. No acute osseous abnormalities. [facility]-[id number] Performing Organization Address [facility] Phone Number [facility] [address] [place] [address] * Troponin (01/25/2018 4:48 AM CDT) Only the most recent of 3 results within the time period is included. Troponin <0.01 0.00 - 0.60 ng/mL [facility] DEPARTMENT OF Comment: PATHOLOGY AND 0.11 - 1.49 GENOMIC MEDICINE ng/mlMay indicate increased risk of acute coronary syndrome. >=1.5 ng/ml Consistent with acute myocardial infarction. The diagnostic value of a single normal or non-diagnostic result is questionable.Serial samples at 2-6 hour intervals are required to rule out acute myocardial injury. Specimen Plasma specimen Performing Organization Address City/[facility] Phone Number [place] [phone] PATHOLOGY AND [email or web address] [facility] * Partial thromboplastin time, activated (01/25/2018 4:48 AM CDT) PTT 23.3 23.0 - 36.0 sec [facility] DEPARTMENT OF Comment: PATHOLOGY AND PTT therapeutic range for [facility] MEDICINE unfractionated heparin is 61.0-112.0 seconds which corresponds to Anti-Xa 0.3-0.7 U/ml. Note:Change in Panic Value The PTT Panic Value is changing from 110 sec. to 100 sec. due to new instrumentation and reagents. Correlation studies have been performed to validate this result. Specimen Blood Performing Organization Address [facility] Phone Number [facility] [place] [address] [place] [address] PATHOLOGY AND [email or web address] [facility] * Prothrombin time with INR (01/25/2018 4:48 AM CDT) Prothrombin time 11.7 (L) 12.0 - 15.0 sec [facility] DEPARTMENT OF PATHOLOGY AND [email or web address] [facility] INR 0.85 (L) 0.92 - 1.12 [facility] DEPARTMENT OF Comment: PATHOLOGY AND For patients on anticoagulant GENOMIC MEDICINE therapy, reference ranges below: Indication: INR Value Treatment of Venous Thrombosis, 2.0-3.0 pulmonary emboli, or prophylaxis of a venous thrombosis, or systemic emboli. High dose, high risk patients 3.0-4.5 with mechanical valves. NOTE:INR values over 3.0 are sometimes associated with gastrointestinal hemorrhage, especially values over 4.0. Specimen Blood Performing Organization Address [facility] Phone Number [facility] DEPARTMENT [address] [place] [phone] PATHOLOGY AND [email or web address] [facility] * B natriuretic peptide (01/25/2018 4:48 AM CDT) BNP 6 0 - 100 pg/mL [facility] DEPARTMENT OF PATHOLOGY AND GENOMIC MEDICINE Specimen Blood Performing Organization Address [facility] Phone Number [facility] DEPARTMENT OF [address] [facility] [address] [place] [phone] PATHOLOGY AND GENOMIC MEDICINE * ECG ED Preliminary Interpretation - NOT AN ORDER (01/25/2018 4:46 AM CDT) Only the most recent of 2 results within the time period is included. Narrative Performed At Lyndsey Dorantes MD 01/25/2018 10:42 PM ECG ED Preliminary Interpretation - Not an Order Performed by: LYNDSEY DORANTES Authorized by: LYNDSEY DORANTES Interpretation: Interpretation: normal Rate: ECG rate:97 ECG rate assessment: normal Rhythm: Rhythm: sinus rhythm Ectopy: Ectopy: none QRS: QRS axis:Normal QRS intervals:Normal Conduction: Conduction: normal ST segments: ST segments:Normal T waves: T waves: normal Comments: ECG was performed at 0452. * Phosphorus level (11/28/2017 10:29 AM [place]) Phosphorus 3.4 2.5 - 4.5 mg/dL [facility] DEPARTMENT OF PATHOLOGY AND GENOMIC MEDICINE Specimen Plasma specimen Performing Organization Address [facility] Phone Number [facility] [address] [place] [address] PATHOLOGY AND [email or web address] MEDICINE * Lactic acid level (11/28/2017 10:29 AM [place]) Lactic acid 1.6 0.5 - 2.2 mmol/L [facility] DEPARTMENT OF PATHOLOGY AND GENOMIC MEDICINE Specimen Blood Performing Organization Address [facility] Phone Number [facility] [address] [facility]. [place] [phone] PATHOLOGY AND GENOMIC MEDICINE after 08/25/2017 Advance Directives Patient has advance care planning documents, and code status on file. For more i nformation, please contact: Darian Ansari [address] [facility] [place] [address] Date Inactivated Comments Code Status Date Activated 01/29/2018 7:45 PM Full Code 01/25/2018 6:04 AM Code Status decision reached by: Patient
[2018-08-26] MEDS ORDERED: ONDANSETRON HCL INJ 2 MG/ML VIAL IV STA (12:23)
[2018-08-26] MEDS ORDERED: PANTOPRAZOLE 40 MG 10ML VIAL IV STA (12:23)
[2018-08-26 12:29] LABS: BASOPHILS % 0.5 % (0.0-1.0); EOSINOPHILS % 0.4 % (0.0-6.0); HEMATOCRIT 35.8 % (38.2-49.6); HEMOGLOBIN 12.6 g/dL (14.0-18.0); LYMPHOCYTES # (AUTO) 2.2 (1.0-3.2); MEAN CORPUSCULAR HEMOGLOBIN 31.2 pg (28-32); MEAN CORPUSCULAR HGB CONC 35.2 g/dL (31-35); MEAN CORPUSCULAR VOLUME 88.6 fL (81-99); MONOCYTES # (AUTO) 0.7 (0.2-0.8); MONOCYTES % 8.8 % (4.4-11.3); NEUTROPHILS # (AUTO) 5.2 (2.1-6.9); NEUTROPHILS % 63.1 % (38.7-80.0); PLATELET COUNT 144 x10e3/uL (140-360); RED BLOOD COUNT 4.04 x10e6/uL (4.3-5.7); RED CELL DISTRIBUTION WIDTH 12.4 % (11.7-14.4)
[2018-08-26] MEDS ORDERED: MORPHINE SULFATE INJ 4 MG/ML INJ IV ONE (12:30)
[2018-08-26] MEDS ORDERED: MULTIVITAMINS- 12 INJECTION 10 ML, FOLIC ACID MDV 5 MG, THIAMINE HCL INJ 100 MG in SODI... IV ONE (12:30)
[2018-08-26 12:50] LABS: ALANINE AMINOTRANSFERASE 36 IU/L (0-55); ALBUMIN 3.3 g/dL (3.5-5.0); ALBUMIN/GLOBULIN RATIO 0.8 (0.8-2.0); ALKALINE PHOSPHATASE 47 IU/L (40-150); ANION GAP 16.8 mmol/L (8-16); BLOOD UREA NITROGEN 13 mg/dL (7-26); BUN/CREATININE RATIO 15 (6-25); CALCIUM 8.7 mg/dL (8.4-10.2); CARBON DIOXIDE 20 mmol/L (22-29); CHLORIDE 102 mmol/L (98-107); CREATININE, SERUM 0.84 mg/dL (0.72-1.25); EST GLOMERULAR FILTRATION RATE > 60 ML/MIN (60-); GLUCOSE 69 mg/dL (74-118); POTASSIUM 3.8 mmol/L (3.5-5.1); SODIUM 135 mmol/L (136-145)
[2018-08-26 12:52] LABS: INR 0.87; PARTIAL THROMBOPLASTIN TIME 27.5 seconds (23.8-35.5); PROTHROMBIN TIME 12.6 seconds (11.9-14.5)
[2018-08-26 12:59] LABS: AMYLASE 52 U/L (25-125); CREATINE KINASE 451 IU/L (30-200); LIPASE 23 U/L (8-78)
[2018-08-26 13:03] LABS: CLARITY,URINE SL CLOUDY (CLEAR); COLOR,URINE YELLOW (YELLOW); KETONES,URINE NEGATIVE (NEGATIVE); LEUKOCYTE ESTERASE ,URINE NEGATIVE (NEGATIVE); NITRITE,URINE NEGATIVE (NEGATIVE); PROTEIN,URINE DIPSTICK 2+ (NEGATIVE)
[2018-08-26 13:04] LABS: BILIRUBIN,URINE NEGATIVE (NEGATIVE); URINE UROBILINOGEN 0.2 mg/dL (0.2 - 1)
[2018-08-26 13:32] LABS: BACTERIA,URINE RARE /HPF; EPITHELIAL CELLS,URINE FEW /LPF; RBC,URINE 0-5 /HPF (0-5)
[2018-08-26] MEDS ORDERED: LORAZEPAM INJ 2 MG/ML VIAL IV ONE (14:15)
[2018-08-26] MEDS ORDERED: SODIUM CHLORIDE 0.9% 1000ML 1,000 ML IV STA (15:23)
[2018-08-26] MEDS ORDERED: SODIUM CHLORIDE 0.9% 1000ML 1,000 ML ONE (15:26)
[2018-08-26] MEDS ORDERED: DEXTROSE 50% SYRINGE 50 ML IV ONE ×2 (15:28→15:45)
--- NOTE | 2018-08-26 15:49 | Diagnostic Imaging Report ---
EXAMINATION: CT of the abdomen and pelvis with contrast. TECHNIQUE: Helical CT images of the abdomen and pelvis were performed from the lung bases to the lesser trochanters after the intravenous administration of 150 cc of Isovue 300 and the oral administration of none. Coronal and sagittal reformatted images were obtained. Dose modulation, iterative reconstruction, and/or weight based adjustment of the mA/kV was utilized to reduce the radiation dose to as low as reasonably achievable. COMPARISON: None. CLINICAL HISTORY:Abdominal pain DISCUSSION: ABDOMEN/PELVIS: LOWER THORAX:Unremarkable. HEPATOBILIARY: No focal hepatic lesions. No intra-or extrahepatic biliary ductal dilation. The gallbladder is normal. SPLEEN: No splenomegaly. PANCREAS: No focal masses or ductal dilatation. ADRENALS: No adrenal nodules. KIDNEYS/URETERS: No hydronephrosis, stones, or solid mass lesions. PELVIC ORGANS/BLADDER: The bladder is normal. PERITONEUM/RETROPERITONEUM: No free air or fluid. LYMPH NODES: Enlarged gastrohepatic lymph nodes measuring short axis I.8 cm and 1.5 cm axial image 20 VESSELS: The celiac trunk,superior and inferior mesenteric and bilateral renal arteries are patent The portal, superior mesenteric and splenic veins are patent. GI TRACT: No obstruction. Possible esophageal wall thickening distally. Appendix normal. BONES AND SOFT TISSUE: No bony destructive lesions. No soft tissue abnormalities. IMPRESSION: No acute CT finding. Enlarged upper abdominal lymph nodes. Etiology indeterminate. Probable distal esophageal wall thickening. Signed by: Dr. Marcus Vazquez M.D. on 08/26/2018 3:46 PM
[2018-08-26 16:59] LABS: CREATINE KINASE 340 IU/L (30-200)
[2018-08-26 19:10] VITALS: BP 141/97
[2018-08-26] MEDS ORDERED: IOPAMIDOL 370 MG/ML 200 ML INFUS..BTL INJ ONE (20:44)
[2018-08-26] MEDS ORDERED: SODIUM CHLORIDE 0.9% 50ML 50 ML ONE (20:44)
== END 2018-08-26 19:24 | disposition home or self-care (01) ==
LOC: ER 12:12
DX: R10.13 Epigastric pain (principal); R11.2 Nausea with vomiting, unspecified; I10 Essential (primary) hypertension; E11.9 Type 2 diabetes mellitus without complications; F10.20 Alcohol dependence, uncomplicated; F17.210 Nicotine dependence, cigarettes, uncomplicated
CPT/HCPCS: 36415; 74177; 80053; 81001; 82150; 82550; 82553; 82948; 83690; 83735; 84484; 85025; 85610; 85730; 93005; 99284; J2060; J2270; J2405; J3411; J7030; J7799; Q9967